=== PATIENT | female | born 1970 | race Caucasian/White ===

== ENCOUNTER → 2017-06-16 | Outpatient (CLI) | payer BC ==
[~2017-06-16] MED LIST: ADVIL200 MG PO; MICARDIS HCT 121 TAB PO; MOBIC15 MG PO; NAPROSYN 2250 MG/TAB PO; NORCO 325 MG-51 TAB PO; NORCO 325 MG-7.1 TAB PO; PHENTERMINE15 MG; ROXICODONE 55 MG/TAB PO
== END ==
LOC: MC.RAD 11:20
DX: Z12.31 Encounter for screening mammogram for malignant neoplasm of breast (principal)

== ENCOUNTER → 2017-06-22 | Outpatient (CLI) | payer BC | LOC: MC.RAD 13:52 | DX: N63 Unspecified lump in breast (principal); N64.89 Other specified disorders of breast ==

== ENCOUNTER → 2019-01-08 | Outpatient (CLI) | payer BC | LOC: MC.RAD 15:11 | DX: Z12.31 Encounter for screening mammogram for malignant neoplasm of breast (principal) ==